=== PATIENT | male | born 1965 | race Caucasian/White ===

== ENCOUNTER 2016-10-13 13:28 | Day surgery (SDC) | payer OTHER ==
[~2016-10-13] VITALS: Ht 185.4 cm; Wt 95.5 kg
[~2016-10-13 13:28] MED LIST: 0.9% Sodium Chloride 1,000 ML IV PRN; Sodium Chloride LOK Flush 10 mL Syringe IV PRN; fentaNYL-PF 50 mCg/mL 2 mL Inj IVPUSH PRN
[2016-10-13 14:27] VITALS: BP 134/87; PULSE 85; RESP 14; O2SAT 96
[2016-10-13 15:53] VITALS: BP 127/75; PULSE 75; RESP 16; O2SAT 92
[2016-10-13 15:59] VITALS: BP 127/75; PULSE 76; RESP 17; O2SAT 92
--- NOTE | 2016-10-13 16:01 | ENDO ---
[address] [address] ENDOSCOPY PROCEDURE PATIENT: HI GARCIA : 1965 MR#: [id number] ADMIT: 10/13/2016 JOB ID: [id number] DATE OF SERVICE: 10/13/2016 PROCEDURE PERFORMED: Colonoscopy. INDICATIONS: Screening. ASA CLASSIFICATION: The patient's ASA classification is I. MALLAMPATI SCORE: Mallampati score was 1. MEDICATIONS: 1. Versed 4 mg. 2. Fentanyl 100 mcg. INSTRUMENT USED: PCF-H180AL. PREPARATION QUALITY: Fair. PROCEDURE DETAILS: After informed consent was obtained, the patient was brought into the GI suite, where he was placed on oxygen via nasal cannula and monitored with continuous pulse oximeter, telemetry, and blood pressure monitoring. A time-out was performed. Then, he was placed in the left lateral decubitus position and medications were administered for sedation. Digital rectal exam with palpation of the prostate was performed which was unremarkable. The colonoscope was then inserted into the rectum and advanced under direct visualization to the cecum, which was identified by the presence of the ileocecal valve and appendiceal orifice. Once the cecum was reached, the colonoscope was withdrawn back into the rectum, as the mucosa and lumen were examined. In the rectum, retroflexion was performed. Following retroflexion, remaining air in the rectum was suctioned, and procedure was completed. FINDINGS: 1. Scattered diverticula were seen throughout the left side of the colon. 2. As the colonoscope was then withdrawn through the anal canal, moderate-sized internal hemorrhoids were seen. IMPRESSION: 1. Left-sided diverticulosis. 2. Internal hemorrhoids. RECOMMENDATIONS: 1. Fiber-rich diet. 2. Repeat colonoscopy in 10 years, sooner if symptoms dictate. COMPLICATIONS: None. ESTIMATED BLOOD LOSS: Zero.
[2016-10-13 16:13] VITALS: BP 117/70; PULSE 82; RESP 16; O2SAT 93
== END 2016-10-13 23:59 | disposition home or self-care (01) ==
LOC: END 13:28
PROVIDERS: ATTEND Internal Medicine Gastroenterology
DX: Z12.11 Encounter for screening for malignant neoplasm of colon (principal); K64.8 Other hemorrhoids; K57.30 Diverticulosis of large intestine without perforation or abscess without bleeding; F17.210 Nicotine dependence, cigarettes, uncomplicated
CPT/HCPCS: G0121; G0500; J2250; J3010; J7030